=== PATIENT | male | born 1995 | race Caucasian/White ===

== ENCOUNTER 2018-10-03 00:19 | Emergency (ER) | payer SELFPAY ==
[~2018-10-03] VITALS: Ht 182.9 cm; Wt 80.9 kg
[2018-10-03 00:30] VITALS: BP 140/87
== END 2018-10-03 00:50 | disposition left against medical advice (07) ==
LOC: EMS 00:22
DX: S01.81XA Laceration without foreign body of other part of head, initial encounter (principal); Z53.21 Procedure and treatment not carried out due to patient leaving prior to being seen by health care provider; Y04.0XXA Assault by unarmed brawl or fight, initial encounter; Y93.89 Activity, other specified; Y92.89 Other specified places as the place of occurrence of the external cause; Y99.8 Other external cause status